=== PATIENT | female | born 1990 ===

== ENCOUNTER 2016-12-22 16:12 | Emergency (ER) | payer OTHER ==
--- NOTE | 2016-12-23 14:21 | OBHP ---
Datetime: 12/22/2016 15:46 IP Adm Impression: , intrauterine ; No Active Labor; Intact Membranes IP Chief Complaint Other: 25 at 21 weeks Gestation complains of abdominal pain. No LOF, no vagi nal bleeding. States good movemwnt. History of 3 previous C/Sections. No urinary symptoms. IP Admit Plan: Discharge home Admit Comment, IP Provider: Not in Labor. Discharge home. Pelvic Type - PN: Adequate Extremities - PN: Normal Abdomen - PN: Normal Back - PN: Normal Breast - PN: Not Done Lungs - PN: Normal Heart - PN: Normal Thyroid - PN: Not Done Neurologic - PN: Not Done HEENT - PN: Not Done General - PN: Normal FHR - Baseline A Provider: 135 Membranes, Provider: Intact Contraction Comments Provider: 0 Gestation - Est Wks by US: 21.0 EGA AdmitDate IP: 21.1 Vital Signs Provider: Reviewed; Within Normal Limits IP Chief Complaint: Maternal discomfort NICHD Variability Prov Fetus A: Moderate 6-25bpm NICHD Decel Fetus A IP Provider: None Dilatation, Provider: 0 Effacement, Provider: 0 Station, Provider: -3 Genitourinary Exam: Normal DTRs - PN: Normal
--- NOTE | 2016-12-23 14:21 | OBDCSUM ---
Datetime: 12/22/2016 16:23 Discharge Instructions, Provider: Specific instructions as noted Discharge Diagnosis, Provider: False Labor - Undelivered Discharge Time: 12/22/2016 16:24 Discharge Diagnosis Prov Other: 21 weeks Gestation
== END 2016-12-22 16:24 | disposition home or self-care (01) ==
LOC: C.EROB 16:12
DX: O47.02 False labor before 37 completed weeks of gestation, second trimester (principal); Z3A.21 21 weeks gestation of pregnancy

== ENCOUNTER 2017-03-28 21:00 | Emergency (ER) | payer OTHER ==
[2017-03-28] MEDS ORDERED: Naproxen 550 mg Tab PO STA (21:21)
[2017-03-28 21:23] VITALS: BP 108/75; PULSE 106; RESP 20; TEMP 98.2; O2SAT 98
--- NOTE | 2017-03-28 21:47 | C.PDOC ---
History Of Present Illness 27 year old female presents to the ED with complaints of pain and swelling to right ankle after twisting ankle just prior to arrival. Patient states she was walking and twisted her ankle. She is also nine months , denies abdominal pain or falling. Denies head trauma, LOC, change in sensation or other complaints at this time. Time Seen by Provider: 03/28/17 21:09 Chief Complaint (Nursing): Lower Extremity Problem/Injury History Per: Patient History/Exam Limitations: no limitations Onset/Duration Of Symptoms: Hrs Current Symptoms Are (Timing): Still Present Recent travel outside of the [place]: No - Ankle/Foot Description Of Injury: Twisted Past Medical History Reviewed: Historical Data, Nursing Documentation, Vital Signs Vital Signs: Last Vital Signs Temp 98.2 F 03/28/17 21:22 Pulse 106 H 03/28/17 21:22 Resp 20 03/28/17 21:22 BP 108/75 03/28/17 21:22 Pulse Ox 98 03/28/17 22:11 Family History: States: Unknown Family Hx - Social History Hx Alcohol Use: No Hx Substance Use: No Review Of Systems Except As Marked, All Systems Reviewed And Found Negative. Musculoskeletal: Positive for: Leg Pain (right ankle pain ) Physical Exam - Physical Exam Appears: Non-toxic, No Acute Distress Skin: Warm, Dry Head: Atraumatic, Normacephalic Eye(s): bilateral: Normal Inspection, EOMI Nose: Normal Oral Mucosa: Moist Neck: Supple Chest: Symmetrical, No Deformity Respiratory: No Accessory Muscle Use Extremity: No Normal ROM (decreased ROM, secondary to pain ), Tenderness (to lateral right ankle ), No Calf Tenderness, Capillary Refill (good capillary refill, less than two seconds ), No Deformity, Swelling (swelling to lateral right ankle ) Extremity: Bilateral: Normal Color And Temperature Pulses: Left Dorsalis Pedis: Normal, Right Dorsalis Pedis: Normal Neurological/Psych: Oriented x3, Normal Cognition, Normal Motor, Normal Sensation ED Course And Treatment O2 Sat by Pulse Oximetry: 98 (room air ) Progress Note: Patient was given Tylenol. Patient was offered X-ray of the right ankle but refused. Agreed to treat as fracture, RICE and follow up with ortho in 1-2 days for re-evaluaition. Posterior splint applied and crutches were given by instructor adjunct pharmacy technician. Disposition - Disposition Referrals: Jaison Taveras III, MD [Staff Provider] - Disposition: HOME/ ROUTINE Disposition Time: 21:46 Condition: STABLE Additional Instructions: Vaya a oconnor mdico o la clnica en 1-3 tian sin falta, para mas evaluacin. [place] los medicamentos dallin indicado. Volver a la clare de emergencia en cualquier momento si los sntomas persisten o empeoran. Instructions: Ankle Sprain (ED) Forms: Sched[employer]ize (Tajik), Work Excuse Print Language: MALDIVIAN - Clinical Impression Clinical Impression: Ankle sprain - Scribe Statement The provider has reviewed the documentation as recorded by the Scribe Katerine Sanchez All medical record entries made by the Scribe were at my direction and personally dictated by me. I have reviewed the chart and agree that the record accurately reflects my personal performance of the history, physical exam, medical decision making, and the department course for this patient. I have also personally directed, reviewed, and agree with the discharge instructions and disposition.
== END 2017-03-28 22:17 | disposition home or self-care (01) ==
LOC: C.ER 21:00
DX: S93.401A Sprain of unspecified ligament of right ankle, initial encounter (principal); X58.XXXA Exposure to other specified factors, initial encounter